=== PATIENT | male | born 1995 | race Caucasian/White ===

== ENCOUNTER 2017-11-26 22:38 | Emergency (ER) | payer OTHER ==
[~2017-11-26] VITALS: Ht 170.2 cm; Wt 84.1 kg
[~2017-11-26 22:38] MED LIST: OMEP40CA12 PO; [UNRECOGNIZED DRUG - CODE] PO
[2017-11-27 00:47] VITALS: BP 136/87
== END 2017-11-27 01:45 | disposition left against medical advice (07) ==
LOC: EMS 22:40
DX: Z53.21 Procedure and treatment not carried out due to patient leaving prior to being seen by health care provider (principal)